=== PATIENT | male | born 1980 | race Caucasian/White ===

== ENCOUNTER 2021-04-14 21:36 | Emergency (ER) | payer BC ==
[2021-04-14] MEDS ORDERED: VENTOLIN HFA 66.7 GM INH (23:14)
[2021-04-14] MEDS ORDERED: LODINE CAP 300300 MG PO (23:14)
== END 2021-04-14 23:25 | disposition home or self-care (01) ==
LOC: ER1 21:36
DX: U07.1 COVID-19 (principal)
CPT/HCPCS: 99283